=== PATIENT | female | born 1945 | race Two or more races ===

== ENCOUNTER 2017-06-03 10:57 | Day surgery (SDC) | payer MEDICARE ==
[2017-06-03] MEDS ORDERED: LIDOCAINE HCL 2% 20 ML VIAL MC ONE (10:58)
[2017-06-03] MEDS ORDERED: IV LACTATED RINGERS SOLUTION 1,000 ML BAG IV ONE (10:58)
[2017-06-03] MEDS ORDERED: PROPOFOL 200 MG/20 ML BOTTLE IV ONE (10:58)
[2017-06-03 11:28] LABS: *BILIRUBIN,URIN NEGATIVE (NEGATIVE); *BLOOD, URINE 1+ (NEGATIVE); *CLARITY,URINE SLIGHTLY CLOUDY (CLEAR); *COLOR,URINE YELLOW (YELLOW); *KETONES,URINE NEGATIVE (NEGATIVE); *PROTEIN,URINE NEGATIVE (NEGATIVE); *UROBILINOGEN,URINE 0.2 E.U./dl (NORMAL); LEUKOCYTE ESTERASE ,URINE TRACE (NEGATIVE); NITRITE, URINE NEGATIVE (NEGATIVE); PH,URINE 6.5 (5.0-8.0); UGLUCOSE NEGATIVE (NEGATIVE)
[2017-06-03 11:31] LABS: BASOPHILS # (AUTO) 0.1 K/uL (0.0-8.0); BASOPHILS % (AUTO) 0.9 % (0.0-2.0); EOSINOPHILS # (AUTO) 0.4 K/uL (0.0-0.7); EOSINOPHILS % (AUTO) 6.3 % (0.0-7.0); HEMATOCRIT 45.7 % (37-47); HEMOGLOBIN 15.1 G/DL (12.0-16.0); LYMPHOCYTES # (AUTO) 2.1 K/UL (0.8-4.8); LYMPHOCYTES % (AUTO) 33.6 % (20.5-51.5); MEAN CORPUSCULAR HGB CONC 33 g/dL (32.0-37.0); MEAN CORPUSCULAR VOLUME 87.9 FL (81.0-99.0); MONOCYTES # (AUTO) 0.5 K/UL (0.1-1.30); MONOCYTES % (AUTO) 8.3 % (0.0-11.0); NEUTROPHILS # (AUTO) 3.1 K/UL (1.8-8.9); NEUTROPHILS % (AUTO) 50.9 % (38.5-71.5); PLATELET COUNT (AUTO) 204 K/UL (150-450); WHITE BLOOD COUNT (AUTO) 6.2 K/UL (4.0-11.2)
[2017-06-03 11:39] LABS: CREATININE 0.6 mg/dL (0.6-1.3); POTASSIUM 3.5 mmol/L (3.5-5.1)
[2017-06-03 11:55] LABS: BACTERIA,URINE FEW /HPF (NONE SEEN); RBC,URINE 0-3 /HPF (0-3); SQUAMOUS EPITHELIAL CELL,UR FEW /HPF (NONE SEEN); WBC,URINE 0-3 /HPF (0-3)
== END 2017-06-03 15:15 | disposition home or self-care (01) ==
LOC: DS 10:57
PROVIDERS: ATTEND Internal Medicine Gastroenterology
DX: K64.8 Other hemorrhoids (principal); K62.5 Hemorrhage of anus and rectum; K64.4 Residual hemorrhoidal skin tags; K20.9 Esophagitis, unspecified; K29.70 Gastritis, unspecified, without bleeding; J44.9 Chronic obstructive pulmonary disease, unspecified; I10 Essential (primary) hypertension; J45.909 Unspecified asthma, uncomplicated; Z85.850 Personal history of malignant neoplasm of thyroid; E66.9 Obesity, unspecified
CPT/HCPCS: 36415; 71010; 85025; 85730; 93005; A4217; A4663; J3490; J7120